=== PATIENT | male | born 1955 | race Caucasian/White ===

== ENCOUNTER 2017-11-21 14:17 | Emergency (ER) | payer OTHER ==
[2017-11-21] MEDS: ACETAMINOPHEN 325 MG TAB PO (14:55)
[2017-11-21] MEDS: predniSONE 20 MG TAB PO (14:55)
[2017-11-21] MEDS: ALBUTEROL 0.083% (NEB) 2.5 MG/3 ML AMP NEB (15:03)
[2017-11-21] MEDS: IPRATROPIUM (NEB) 0.5 MG/2.5 ML AMP NEB (15:03)
== END 2017-11-21 16:55 | disposition home or self-care (01) ==
LOC: E/R 14:17
DX: J45.901 Unspecified asthma with (acute) exacerbation (principal); J06.9 Acute upper respiratory infection, unspecified; F17.210 Nicotine dependence, cigarettes, uncomplicated; J44.9 Chronic obstructive pulmonary disease, unspecified; R05 Cough
CPT/HCPCS: 71045; 87400; 93005; 94664; 99284-25